=== PATIENT | male | born 1945 | race Caucasian/White ===

== ENCOUNTER 2021-03-28 09:50 | Day surgery (SDC) | payer MEDICARE ==
[2021-03-28] VITALS (9 sets, daily range): BP systolic 125–162; BP diastolic 60–92; PULSE 49–76; TEMP 98.5
[~2021-03-28] VITALS: Ht 193 cm; Wt 140.7 kg
[2021-03-28] MEDS ORDERED: GLUCOPHAGE850 MG/TAB PO (10:23)
[2021-03-28] MEDS ORDERED: COUMADIN 5MG5 MG/TAB PO (10:24)
[2021-03-28] MEDS ORDERED: PRINIVIL20 MG PO (10:25)
[2021-03-28] MEDS ORDERED: COREG 6.256.25 MG/TA PO (10:26)
[2021-03-28] MEDS ORDERED: ZOCOR 40MG40 MG PO (10:26)
[2021-03-28] MEDS ORDERED: LASIX 40MG TABL40 MG PO (10:27)
[2021-03-28 10:28] LABS: HEMATOCRIT 43.3 % (42.0-52.0); HEMOGLOBIN 14.1 g/dl (13.5-18.0); MEAN CELL VOLUME 101 fl (80.0-100.0); MEAN CORPUSCULAR HEMOGLOBIN 33 pg (27-31); MEAN CORPUSCULAR HGB CONC 33 g/dl (33.0-37.0); MEAN PLATELET VOLUME 9.1 fl (7.4-10.4); PLATELET COUNT 227 K/mm3 (130-400); RED BLOOD COUNT 4.29 M/mm3 (4.20-5.60)
[2021-03-28] MEDS ORDERED: VITAMIN B12 781 TAB PO (10:28)
[2021-03-28 10:37] LABS: INR 1.5 (0.8-3.0); PROTHROMBIN TIME 16.8 SECONDS (9.7-12.8)
[2021-03-28 10:39] LABS: CALCIUM 9.2 mg/dL (8.4-10.2); CREATININE, serum 1.44 mg/dL (0.72-1.25); POTASSIUM 5.1 mmol/L (3.5-4.5)
[2021-03-28 10:40] LABS: PARTIAL THROMBOPLASTIN TIME 36.1 SECONDS (26.0-37.0)
--- NOTE | 2021-03-28 11:35 | NUR ---
SEE MERGE DOCUMENTATION FOR MEDICATION ADMINISTRATION TIMES AND INTRA/POST PROCEDURE SEDATION ASSESSMENTS.
--- NOTE | 2021-03-28 12:45 | NUR ---
Pt back to [facility] after heart cath. report was received by Cuco MERCEDES. Pt is awake and alert, pwd with reg and unlabored respirations. tr band to rt wrist, cms intact. CDI dressing intact to rt side of neck. no evidence of bleeding at either site. afib with slow vent response on monitor. pt updated on poc, lunch ordered. at bs. call light in reach.
--- NOTE | 2021-03-28 15:30 | NUR ---
TR band has been deflated at this time. site dressed with bandaid, folded 2x2 and coban. cms remains intact distal. puncture site to rt side of neck remains soft without evidence of bleeding. tegaderm was replace on neck dressing prior to discharge. I reviewed dc/fu and rx instructions with pt and . they both verbalize understanding. I dc'd pt's IV with cath intact, dressing was applied. Pt is amb in room with his normal gait. pt is escorted to exit via wheelchair.
== END 2021-03-28 18:31 | disposition home or self-care (01) ==
LOC: COL.CAR 09:50
PROVIDERS: Internal Medicine Cardiovascular Disease
DX: I25.10 Atherosclerotic heart disease of native coronary artery without angina pectoris (principal); I27.20 Pulmonary hypertension, unspecified; I50.30 Unspecified diastolic (congestive) heart failure; R91.8 Other nonspecific abnormal finding of lung field
CPT/HCPCS: C1894; J1644; J2250; J3010; J7030; Q9967